=== PATIENT | female | born 2000 | race Asian ===

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

== ENCOUNTER 2020-11-01 17:05 | Inpatient (IN) | payer MEDICAID, OTHER ==
[~2020-11-01] VITALS: Ht 167.6 cm; Wt 85.0 kg
[~2020-11-01 17:05] MED LIST changes: +SERT-440 PO; -SERT100T12 PO
[2020-11-01 18:12] LABS: BASOPHILS % (AUTO) 0.5 % (0.0-2.0); EOSINOPHILS % (AUTO) 2.4 % (1.0-6.0); HEMATOCRIT 42.4 % (36-46); HEMOGLOBIN 13.6 g/dL (12.0-16.0); LYMPHOCYTES # (AUTO) 2.1 K/uL (1.0-4.8); LYMPHOCYTES % (AUTO) 25.3 % (22.0-44.0); MEAN CORPUSCULAR HEMOGLOBIN 27.5 pg (26.0-34.0); MEAN CORPUSCULAR HGB CONC 32.1 G/dL (31.0-37.0); MEAN CORPUSCULAR VOLUME 86 fL (80-100); MONOCYTES # (AUTO) 0.5 K/uL (0.1-1.0); MONOCYTES % (AUTO) 5.6 % (2.0-9.0); NEUTROPHILS # (AUTO) 5.5 K/uL (1.8-7.7); NEUTROPHILS % (AUTO) 66.2 % (40.0-70.0); PLATELET COUNT (AUTO) 244 K/uL (150-450); RED BLOOD CELL COUNT(AUTO) 4.93 MIL/uL (4.00-5.20); RED CELL DISTRIBUTION WIDTH 14.5 % (11.5-14.5)
[2020-11-01] MEDS ORDERED: BACITRACIN 0.9 GM PACKET OINTMENT TP ONE (18:15)
[2020-11-01 18:20] LABS: ANION GAP 7 mmol/L (8-16); CALCIUM, TOTAL 8.5 mg/dL (8.8-10.5); CARBON DIOXIDE 22 mmol/L (22-29); CHLORIDE 107 mmol/L (98-107); CREATININE 0.98 mg/dL (0.60-1.30); GLOMERULAR FILTR. RATE CALC > 60 mL/min (>60); GLUCOSE,RANDOM 99 mg/dL (70-110); POTASSIUM 3.6 mmol/L (3.5-5.1); SODIUM SERUM 136 mmol/L (136-145); UREA NITROGEN, BLOOD 14 mg/dL (7-18)
[2020-11-01 18:27] LABS: ALANINE AMINOTRANSFERASE 16 U/L (12-78); ALBUMIN 3.6 g/dL (3.4-5.0); ALKALINE PHOSPHATASE 79 U/L (46-116); ASPARTATE AMINOTRANSFERASE 12 U/L (15-37); BILIRUBIN,TOTAL 0.2 mg/dL (0.1-1.0); TOTAL PROTEIN, SERUM 7.5 g/dL (6.4-8.2)
[2020-11-01 18:32] LABS: COVID AG,FIA SOURCE NASOPHARYNGEAL
[2020-11-01] MEDS ORDERED: ZOLPIDEM TARTRATE 10 MG TABLET PO PRN (19:15)
[2020-11-01] MEDS ORDERED: HALOPERIDOL 5 MG TABLET PO PRN (19:15)
[2020-11-02 03:48] VITALS: BP 104/75
[2020-11-02 08:32] VITALS: BP 123/73
[2020-11-02] MEDS ORDERED: LOPERAMIDE HCL 2 MG CAPSULE PO PRN (08:45)
[2020-11-02] MEDS ORDERED: CloNIDine HCL 0.1 MG TABLET PO PRN (08:45)
[2020-11-02] MEDS ORDERED: MAGNESIUM HYDROXIDE SUSPENSION 30 ML UDCUP PO PRN (08:45)
[2020-11-02] MEDS ORDERED: MAG HYDROX/AL HYDROX/SIMETH ES 30 ML SUSPENSION UDCUP PO PRN (08:45)
[2020-11-02] MEDS ORDERED: IBUPROFEN 600 MG TABLET PO PRN (08:45)
[2020-11-02] MEDS ORDERED: ACETAMINOPHEN 325 MG TABLET PO PRN (08:45)
[2020-11-02] MEDS ORDERED: ONDANSETRON HCL 4 MG TABLET PO PRN (08:45)
[2020-11-02] MEDS ORDERED: PETROLATUM,WHITE 28 GM JELLY TP PRN (08:45)
[2020-11-02] MEDS ORDERED: BENZOCAINE/MENTHOL LOZENGE PO PRN (08:45)
[2020-11-02] MEDS ORDERED: DOCUSATE SODIUM 100 MG CAPSULE PO PRN (08:45)
[2020-11-02] MEDS ORDERED: OMEPRAZOLE 20 MG CAPSULE PO PRN (08:45)
[2020-11-02] MEDS ORDERED: BACITRACIN 28 GM OINTMENT TP PRN (08:45)
[2020-11-02] MEDS ORDERED: ALBUTEROL SULFATE HFA 90 MCG/PUFF 8 GM INHALER IH PRN (08:45)
[2020-11-02] MEDS: SERTRALINE HCL 100 MG TABLET PO SCH (10:37)
[2020-11-02] MEDS: LORazepam 2 MG TABLET PO PRN ×2 (10:37→16:28)
[2020-11-02] MEDS: TOPIRAMATE 100 MG TABLET PO SCH ×2 (10:37→16:28)
[2020-11-02] MEDS: HydrOXYzine PAMOATE 50 MG CAPSULE PO SCH (20:15)
[2020-11-02] MEDS: BENZTROPINE MESYLATE 1 MG TABLET PO SCH (20:15)
[2020-11-02] MEDS: OLANZapine 10 MG TABLET PO SCH (20:16)
[2020-11-02 20:19] VITALS: BP 125/71
[2020-11-03 05:21] VITALS: BP 121/68
[2020-11-03] MEDS: FERROUS SULFATE 325 MG EC TABLET PO SCH (06:05)
[2020-11-03 08:17] VITALS: BP 103/60
[2020-11-03 09:14] LABS: CHOL/HDL RATIO 5.9 (3.9-5.7)
[2020-11-03] MEDS: TOPIRAMATE 100 MG TABLET PO SCH ×2 (11:29→16:28)
[2020-11-03] MEDS: SERTRALINE HCL 100 MG TABLET PO SCH (11:29)
[2020-11-03 16:12] VITALS: BP 105/76
[2020-11-03] MEDS: HydrOXYzine PAMOATE 50 MG CAPSULE PO SCH (20:41)
[2020-11-03] MEDS: BENZTROPINE MESYLATE 1 MG TABLET PO SCH (20:41)
[2020-11-03] MEDS: OLANZapine 10 MG TABLET PO SCH (20:44)
[2020-11-04 05:01] VITALS: BP 112/69
[2020-11-04] MEDS: FERROUS SULFATE 325 MG EC TABLET PO SCH (06:22)
[2020-11-04] MEDS: LORazepam 2 MG TABLET PO PRN (08:05)
[2020-11-04] MEDS: SERTRALINE HCL 100 MG TABLET PO SCH (08:05)
[2020-11-04] MEDS: TOPIRAMATE 100 MG TABLET PO SCH ×2 (08:05→16:14)
[2020-11-04 09:29] VITALS: BP 120/87
[2020-11-04 14:54] LABS: GLUCOMETER DEV NAME(LOC) BV3S.; GLUCOSE,POINT OF CARE 107 MG/DL (70-110)
[2020-11-04 16:15] VITALS: BP 129/65
[2020-11-04] MEDS: BENZTROPINE MESYLATE 1 MG TABLET PO SCH (20:09)
[2020-11-04] MEDS: HydrOXYzine PAMOATE 50 MG CAPSULE PO SCH (20:09)
[2020-11-04] MEDS: OLANZapine 10 MG TABLET PO SCH (20:09)
[2020-11-05 00:11] VITALS: BP 131/80
[2020-11-05] MEDS: FERROUS SULFATE 325 MG EC TABLET PO SCH (06:28)
[2020-11-05] MEDS: TOPIRAMATE 100 MG TABLET PO SCH ×2 (08:49→16:44)
[2020-11-05] MEDS: SERTRALINE HCL 100 MG TABLET PO SCH (08:49)
[2020-11-05 11:52] VITALS: BP 122/68
[2020-11-05 16:08] VITALS: BP 134/68
[2020-11-05] MEDS: BENZTROPINE MESYLATE 1 MG TABLET PO SCH (20:16)
[2020-11-05] MEDS: HydrOXYzine PAMOATE 50 MG CAPSULE PO SCH (20:16)
[2020-11-05] MEDS: OLANZapine 10 MG TABLET PO SCH (20:16)
[2020-11-06 04:48] VITALS: BP 126/66
[2020-11-06] MEDS: FERROUS SULFATE 325 MG EC TABLET PO SCH (06:58)
[2020-11-06 08:23] VITALS: BP 119/60
[2020-11-06] MEDS: TOPIRAMATE 100 MG TABLET PO SCH ×2 (08:26→16:50)
[2020-11-06] MEDS: SERTRALINE HCL 100 MG TABLET PO SCH (08:26)
[2020-11-06] MEDS ORDERED: LORazepam 1 MG TABLET ONE ×2 (10:44)
[2020-11-06 16:11] VITALS: BP 100/70
[2020-11-06] MEDS: OLANZapine 10 MG TABLET PO SCH (20:28)
[2020-11-06] MEDS: BENZTROPINE MESYLATE 1 MG TABLET PO SCH (20:28)
[2020-11-06] MEDS: HydrOXYzine PAMOATE 50 MG CAPSULE PO SCH (20:28)
[2020-11-07 05:37] VITALS: BP 116/68
[2020-11-07] MEDS: FERROUS SULFATE 325 MG EC TABLET PO SCH (06:27)
[2020-11-07] MEDS: TOPIRAMATE 100 MG TABLET PO SCH (08:04)
[2020-11-07] MEDS: SERTRALINE HCL 100 MG TABLET PO SCH (08:06)
[2020-11-07 08:19] VITALS: BP 100/58
[2020-11-07] MEDS ORDERED: HYDR50CA9 PO (09:17)
[2020-11-07] MEDS ORDERED: TOPI100T37 PO (09:17)
[2020-11-07] MEDS ORDERED: OLAN10TA74 PO (09:18)
[2020-11-07 11:19] LABS: GLUCOMETER DEV NAME(LOC) POC.BV
== END 2020-11-07 12:30 | disposition home or self-care (01) | DRG 750 ==
LOC: EMS 17:05 → B3A 19:00
PROVIDERS: ADMIT Psychiatry & Neurology Psychiatry; ATTEND Psychiatry & Neurology Psychiatry
DX: F25.9 Schizoaffective disorder, unspecified (principal); R45.851 Suicidal ideations; F94.0 Selective mutism; Z20.822 Contact with and (suspected) exposure to COVID-19; D64.9 Anemia, unspecified; F10.11 Alcohol abuse, in remission; F32.9 Major depressive disorder, single episode, unspecified; F41.9 Anxiety disorder, unspecified; R41.83 Borderline intellectual functioning; F19.10 Other psychoactive substance abuse, uncomplicated; G47.00 Insomnia, unspecified; K59.00 Constipation, unspecified; Z79.899 Other long term (current) drug therapy; Z91.018 Allergy to other foods; Z87.891 Personal history of nicotine dependence; Z98.2 Presence of cerebrospinal fluid drainage device
CPT/HCPCS: 71045; 74018; 80053; 80061; 82962; 84702; 85025; 99285; G0480; 36415-L1; 36415-TC

== ENCOUNTER 2021-06-10 10:57 | Inpatient (IN) | payer MEDICAID, OTHER ==
[~2021-06-10] VITALS: Ht 170.2 cm; Wt 90.3 kg
[~2021-06-10 10:57] MED LIST changes: -ALBU8HFA IH; -BISA10SU11 PR; -DIPH25TA20 PO; -DOCU240C25 PO; -FLEETOIL PR; -FLUO-191 PO; +HYDR50CA7 PO; -HYDR50CA9 PO; +OLAN10TA74 PO; -OLAN5TAB30 PO; -SIME80TA12 PO; +TOPI100T37 PO
[2021-06-10 11:43] LABS: BASOPHILS % (AUTO) 0.5 % (0.0-2.0); EOSINOPHILS % (AUTO) 4.5 % (1.0-6.0); HEMATOCRIT 41.8 % (36-46); HEMOGLOBIN 14.3 g/dL (12.0-16.0); LYMPHOCYTES # (AUTO) 2.4 K/uL (1.0-4.8); MEAN CORPUSCULAR HEMOGLOBIN 30.4 pg (26.0-34.0); MEAN CORPUSCULAR HGB CONC 34.2 G/dL (31.0-37.0); MEAN CORPUSCULAR VOLUME 89 fL (80-100); MONOCYTES # (AUTO) 0.6 K/uL (0.1-1.0); MONOCYTES % (AUTO) 6.6 % (2.0-9.0); NEUTROPHILS # (AUTO) 5.5 K/uL (1.8-7.7); NEUTROPHILS % (AUTO) 61.4 % (40.0-70.0); PLATELET COUNT (AUTO) 240 K/uL (150-450); RED BLOOD CELL COUNT(AUTO) 4.71 MIL/uL (4.00-5.20); RED CELL DISTRIBUTION WIDTH 13.3 % (11.5-14.5)
[2021-06-10 11:57] LABS: ANION GAP 13 mmol/L (8-16); CALCIUM, TOTAL 8.9 mg/dL (8.8-10.5); CARBON DIOXIDE 20 mmol/L (22-29); CHLORIDE 109 mmol/L (98-107); CREATININE 1.01 mg/dL (0.60-1.30); GLOMERULAR FILTR. RATE CALC > 60 mL/min (>60); GLUCOSE,RANDOM 95 mg/dL (70-110); POTASSIUM 3.9 mmol/L (3.5-5.1); SODIUM SERUM 142 mmol/L (136-145); UREA NITROGEN, BLOOD 13 mg/dL (7-18)
[2021-06-10 12:10] LABS: ALANINE AMINOTRANSFERASE 16 U/L (12-78); ALBUMIN 3.7 g/dL (3.4-5.0); ALKALINE PHOSPHATASE 71 U/L (46-116); ASPARTATE AMINOTRANSFERASE 11 U/L (15-37); BILIRUBIN,TOTAL 0.2 mg/dL (0.1-1.0); HCG,QUANTITATIVE 1 mIU/mL (0-6); TOTAL PROTEIN, SERUM 8.5 g/dL (6.4-8.2)
[2021-06-10] MEDS ORDERED: ACETAMINOPHEN 325 MG TABLET PO PRN (15:00)
[2021-06-10] MEDS ORDERED: ONDANSETRON HCL 4 MG/2 ML VIAL IVP PRN (15:00)
[2021-06-10] MEDS ORDERED: 0.9% SODIUM CHLORIDE 10 ML SYRINGE IVP PRN (15:00)
[2021-06-10 17:03] LABS: COVID AG,FIA SOURCE NASAL SWAB
[2021-06-10] MEDS: PANTOPRAZOLE SODIUM 40 MG/VIAL IVP SCH (17:37)
[2021-06-10 18:18] LABS: INR 1.1 (0.9-1.1); PROTHROMBIN TIME 11.4 SEC (9.4-11.6)
[2021-06-10 21:00] VITALS: BP 108/75
[2021-06-10] MEDS: DOCUSATE SODIUM 100 MG CAPSULE PO SCH (21:57)
[2021-06-11] VITALS (7 sets, daily range): BP systolic 103–134; BP diastolic 53–91
[2021-06-11 07:08] LABS: BASOPHILS % (AUTO) 0.5 % (0.0-2.0); EOSINOPHILS % (AUTO) 4.7 % (1.0-6.0); HEMATOCRIT 44.7 % (36-46); HEMOGLOBIN 15.4 g/dL (12.0-16.0); LYMPHOCYTES # (AUTO) 2.6 K/uL (1.0-4.8); LYMPHOCYTES % (AUTO) 33.6 % (22.0-44.0); MEAN CORPUSCULAR HEMOGLOBIN 30.4 pg (26.0-34.0); MEAN CORPUSCULAR HGB CONC 34.4 G/dL (31.0-37.0); MEAN CORPUSCULAR VOLUME 89 fL (80-100); MONOCYTES # (AUTO) 0.5 K/uL (0.1-1.0); MONOCYTES % (AUTO) 6.4 % (2.0-9.0); NEUTROPHILS # (AUTO) 4.3 K/uL (1.8-7.7); NEUTROPHILS % (AUTO) 54.8 % (40.0-70.0); PLATELET COUNT (AUTO) 258 K/uL (150-450); RED BLOOD CELL COUNT(AUTO) 5.05 MIL/uL (4.00-5.20); RED CELL DISTRIBUTION WIDTH 13.2 % (11.5-14.5)
[2021-06-11 07:32] LABS: ALANINE AMINOTRANSFERASE 17 U/L (12-78); ALBUMIN 3.6 g/dL (3.4-5.0); ALKALINE PHOSPHATASE 73 U/L (46-116); ANION GAP 10 mmol/L (8-16); ASPARTATE AMINOTRANSFERASE 11 U/L (15-37); BILIRUBIN,TOTAL 0.5 mg/dL (0.1-1.0); CALCIUM, TOTAL 9.1 mg/dL (8.8-10.5); CARBON DIOXIDE 22 mmol/L (22-29); CHLORIDE 106 mmol/L (98-107); GLOMERULAR FILTR. RATE CALC > 60 mL/min (>60); GLUCOSE,RANDOM 84 mg/dL (70-110); POTASSIUM 3.7 mmol/L (3.5-5.1); SODIUM SERUM 138 mmol/L (136-145); TOTAL PROTEIN, SERUM 8.4 g/dL (6.4-8.2); UREA NITROGEN, BLOOD 13 mg/dL (7-18)
[2021-06-11] MEDS ORDERED: SODIUM CHLORIDE 0.9% 1,000 ML ONE (07:47)
[2021-06-11] MEDS: PANTOPRAZOLE SODIUM 40 MG/VIAL IVP SCH (08:49)
[2021-06-11] MEDS: DOCUSATE SODIUM 100 MG CAPSULE PO SCH ×2 (08:49→20:58)
[2021-06-11 16:14] LABS: AMPHET/METH SCREEN,URINE NEGATIVE (NEGATIVE); BARBITURATE SCREEN, URINE NEGATIVE (NEGATIVE); BENZODIAZEPINES SCREEN,URINE NEGATIVE (NEGATIVE); CANNABINOID SCREEN,URINE NEGATIVE (NEGATIVE); COCAINE SCREEN,URINE NEGATIVE (NEGATIVE); METHADONE SCREEN, URINE NEGATIVE (NEGATIVE); OPIATE SCREEN,URINE NEGATIVE (NEGATIVE)
[2021-06-11 16:19] LABS: PHENCYCLIDINE SCREEN,URINE NEGATIVE (NEGATIVE)
[2021-06-11] MEDS: ONDANSETRON HCL 4 MG/2 ML VIAL IVP PRN (17:19)
[2021-06-11] MEDS: ACETAMINOPHEN 325 MG TABLET PO PRN (21:00)
[2021-06-11] MEDS ORDERED: LORazepam 2 MG/ML VIAL IVP ONE (22:00)
[2021-06-12 05:40] VITALS: BP 122/61
[2021-06-12 07:35] VITALS: BP 118/63
[2021-06-12] MEDS: PANTOPRAZOLE SODIUM 40 MG/VIAL IVP SCH (09:28)
[2021-06-12] MEDS: DOCUSATE SODIUM 100 MG CAPSULE PO SCH ×2 (09:28→20:51)
[2021-06-12] MEDS: ONDANSETRON HCL 4 MG/2 ML VIAL IVP PRN (11:34)
[2021-06-12 14:28] VITALS: BP 128/68
[2021-06-12] MEDS: TOPIRAMATE 100 MG TABLET PO SCH ×2 (14:56→20:51)
[2021-06-12] MEDS: SERTRALINE HCL 100 MG TABLET PO SCH (14:56)
[2021-06-12 16:51] VITALS: BP 124/74
[2021-06-12 20:12] VITALS: BP 126/80
[2021-06-12] MEDS: HydrOXYzine PAMOATE 50 MG CAPSULE PO SCH (20:51)
[2021-06-12] MEDS: BENZTROPINE MESYLATE 1 MG TABLET PO SCH (20:51)
[2021-06-12] MEDS: OLANZapine 10 MG TABLET PO SCH (20:52)
[2021-06-13 00:32] VITALS: BP 122/72
[2021-06-13 04:50] VITALS: BP 116/71
[2021-06-13 08:11] VITALS: BP 120/70
[2021-06-13] MEDS: TOPIRAMATE 100 MG TABLET PO SCH ×2 (08:25→21:02)
[2021-06-13] MEDS: BENZTROPINE MESYLATE 1 MG TABLET PO SCH ×2 (08:26→21:02)
[2021-06-13] MEDS: SERTRALINE HCL 100 MG TABLET PO SCH (08:26)
[2021-06-13] MEDS: DOCUSATE SODIUM 100 MG CAPSULE PO SCH ×2 (08:26→21:02)
[2021-06-13] MEDS: PANTOPRAZOLE SODIUM 40 MG/VIAL IVP SCH (08:29)
[2021-06-13 16:08] VITALS: BP 127/98
[2021-06-13] MEDS: OLANZapine 10 MG TABLET PO SCH (21:02)
[2021-06-13] MEDS: HydrOXYzine PAMOATE 50 MG CAPSULE PO SCH (21:02)
[2021-06-13] MEDS: ACETAMINOPHEN 325 MG TABLET PO PRN (21:02)
[2021-06-13 21:12] VITALS: BP 117/71
[2021-06-14 01:22] VITALS: BP 116/72
[2021-06-14 05:20] VITALS: BP 108/64
[2021-06-14] MEDS: PANTOPRAZOLE SODIUM 40 MG/VIAL IVP SCH (07:51)
[2021-06-14] MEDS: SERTRALINE HCL 100 MG TABLET PO SCH (08:08)
[2021-06-14] MEDS: TOPIRAMATE 100 MG TABLET PO SCH ×2 (08:09→20:10)
[2021-06-14] MEDS: DOCUSATE SODIUM 100 MG CAPSULE PO SCH ×2 (08:09→20:10)
[2021-06-14] MEDS: BENZTROPINE MESYLATE 1 MG TABLET PO SCH ×2 (08:10→20:10)
[2021-06-14 08:14] VITALS: BP 140/80
[2021-06-14 19:53] VITALS: BP 127/73
[2021-06-14] MEDS: HydrOXYzine PAMOATE 50 MG CAPSULE PO SCH (20:10)
[2021-06-14] MEDS: OLANZapine 10 MG TABLET PO SCH (20:10)
[2021-06-15] MEDS: ACETAMINOPHEN 325 MG TABLET PO PRN (00:43)
[2021-06-15 04:56] VITALS: BP 107/63
[2021-06-15 08:17] VITALS: BP 142/74
[2021-06-15] MEDS: PANTOPRAZOLE SODIUM 40 MG/VIAL IVP SCH (09:00)
[2021-06-15] MEDS: BENZTROPINE MESYLATE 1 MG TABLET PO SCH (09:38)
[2021-06-15] MEDS: DOCUSATE SODIUM 100 MG CAPSULE PO SCH (09:38)
[2021-06-15] MEDS: TOPIRAMATE 100 MG TABLET PO SCH (09:39)
[2021-06-15] MEDS: SERTRALINE HCL 100 MG TABLET PO SCH (09:40)
[2021-06-15] MEDS ORDERED: DOCU-270 PO (11:42)
[2021-06-15] MEDS ORDERED: SERT-162 PO (11:43)
[2021-06-15] MEDS ORDERED: ACET650S24 PR (11:44)
[2021-06-15 16:23] VITALS: BP 118/54
== END 2021-06-15 19:35 | DRG 254 ==
LOC: EMS 11:03 → 6N 17:23
PROVIDERS: ADMIT Internal Medicine; ATTEND Internal Medicine
DX: T18.8XXA Foreign body in other parts of alimentary tract, initial encounter (principal); R45.851 Suicidal ideations; F32.9 Major depressive disorder, single episode, unspecified; X58.XXXA Exposure to other specified factors, initial encounter; Y93.89 Activity, other specified; Z98.2 Presence of cerebrospinal fluid drainage device; Z91.018 Allergy to other foods; Y92.89 Other specified places as the place of occurrence of the external cause; Y99.8 Other external cause status
CPT/HCPCS: 71045; 74018; 74019; 74176; 80053; 84702; 85025; 85610; 87081; 99285; C9113; G0480; J2060; J2405; J7030; 36415-L1; 36415-TC

== ENCOUNTER 2021-08-21 16:00 | Emergency (ER) | payer OTHER ==
[~2021-08-21] VITALS: Ht 167.6 cm; Wt 91.8 kg
[~2021-08-21 16:00] MED LIST changes: +ACET650S24 PR; -BENZ1TAB10 PO; +BENZ1TAB96 PO; +DOCU-385 PO; -FERR-89 PO; +SERT-162 PO; -SERT-440 PO
[2021-08-21] MEDS: PHENYLEPHRINE HCL 0.5% 15 ML NASAL SPRAY NASAL ONE (18:23)
[2021-08-21 19:15] VITALS: BP 114/90
== END 2021-08-21 21:34 | disposition home or self-care (01) ==
LOC: EMS 16:06
DX: R04.0 Epistaxis (principal); F32.A Depression, unspecified; F78.A9 Other genetic related intellectual disability; Z98.890 Other specified postprocedural states; Z91.018 Allergy to other foods; Z88.8 Allergy status to other drugs, medicaments and biological substances; Z86.2 Personal history of diseases of the blood and blood-forming organs and certain disorders involving the immune mechanism
CPT/HCPCS: 30901; 99284; Z7502; Z7610

== ENCOUNTER 2021-12-18 19:35 | Emergency (ER) | payer OTHER ==
[~2021-12-18] VITALS: Ht 175.3 cm; Wt 100.0 kg
[2021-12-18 20:21] VITALS: BP 141/77
[2021-12-18 20:36] LABS: BASOPHILS % (AUTO) 0.5 % (0.0-2.0); EOSINOPHILS % (AUTO) 2.6 % (1.0-6.0); HEMOGLOBIN 12.7 g/dL (12.0-16.0); LYMPHOCYTES # (AUTO) 2.9 K/uL (1.0-4.8); LYMPHOCYTES % (AUTO) 30.2 % (22.0-44.0); MEAN CORPUSCULAR HEMOGLOBIN 29.2 pg (26.0-34.0); MEAN CORPUSCULAR HGB CONC 32.5 G/dL (31.0-37.0); MEAN CORPUSCULAR VOLUME 90 fL (80-100); MONOCYTES # (AUTO) 0.6 K/uL (0.1-1.0); MONOCYTES % (AUTO) 6.1 % (2.0-9.0); NEUTROPHILS # (AUTO) 5.8 K/uL (1.8-7.7); NEUTROPHILS % (AUTO) 60.6 % (40.0-70.0); PLATELET COUNT (AUTO) 276 K/uL (150-450); RED BLOOD CELL COUNT(AUTO) 4.34 MIL/uL (4.00-5.20); RED CELL DISTRIBUTION WIDTH 14.6 % (11.5-14.5)
[2021-12-18 20:43] LABS: ANION GAP 16 mmol/L (8-16); CALCIUM, TOTAL 8.3 mg/dL (8.8-10.5); CARBON DIOXIDE 19 mmol/L (22-29); CHLORIDE 105 mmol/L (98-107); CREATININE 1.13 mg/dL (0.60-1.30); GLOMERULAR FILTR. RATE CALC > 60 mL/min (>60); GLUCOSE,RANDOM 89 mg/dL (70-110); POTASSIUM 3.3 mmol/L (3.5-5.1); SODIUM SERUM 140 mmol/L (136-145); UREA NITROGEN, BLOOD 12 mg/dL (7-18)
[2021-12-18 20:49] LABS: ALANINE AMINOTRANSFERASE 18 U/L (12-78); ALBUMIN 3.8 g/dL (3.4-5.0); ALKALINE PHOSPHATASE 72 U/L (46-116); ASPARTATE AMINOTRANSFERASE 14 U/L (15-37); BILIRUBIN,TOTAL 0.3 mg/dL (0.1-1.0); TOTAL PROTEIN, SERUM 7.9 g/dL (6.4-8.2)
[2021-12-18 21:07] LABS: HCG,QUANTITATIVE 1 mIU/mL (0-6)
[2021-12-18 21:30] LABS: AMPHET/METH SCREEN,URINE NEGATIVE (NEGATIVE); BARBITURATE SCREEN, URINE NEGATIVE (NEGATIVE); BENZODIAZEPINES SCREEN,URINE NEGATIVE (NEGATIVE); CANNABINOID SCREEN,URINE NEGATIVE (NEGATIVE); COCAINE SCREEN,URINE NEGATIVE (NEGATIVE); METHADONE SCREEN, URINE NEGATIVE (NEGATIVE); OPIATE SCREEN,URINE NEGATIVE (NEGATIVE)
[2021-12-18 21:31] LABS: PHENCYCLIDINE SCREEN,URINE NEGATIVE (NEGATIVE)
== END 2021-12-18 23:09 | disposition home or self-care (01) ==
LOC: EMS 19:36
DX: T18.2XXA Foreign body in stomach, initial encounter (principal); T65.892A Toxic effect of other specified substances, intentional self-harm, initial encounter; F32.9 Major depressive disorder, single episode, unspecified; Y92.89 Other specified places as the place of occurrence of the external cause; Y93.89 Activity, other specified; Y99.8 Other external cause status
CPT/HCPCS: 99284; 80053; 84702; 85025; 36415; 74022; 80307; G0480; 99283

== ENCOUNTER 2023-06-05 16:44 | Emergency (ER) | payer OTHER ==
[~2023-06-05] VITALS: Ht 170.2 cm; Wt 95.5 kg
[~2023-06-05 16:44] MED LIST changes: +BENZ1TAB84 PO; -BENZ1TAB96 PO
[2023-06-05] MEDS ORDERED: PROP10TA73 PO (17:34)
[2023-06-05] MEDS ORDERED: CHLO50TA61 PO (17:34)
[2023-06-05] MEDS ORDERED: HYDR50CA7 PO (17:34)
[2023-06-05] MEDS ORDERED: METF-1211 PO (17:34)
[2023-06-05] MEDS ORDERED: MEDR150V13 IM (17:34)
[2023-06-05 17:44] VITALS: TEMP 98.7
[2023-06-06] VITALS: BP 128/70; PULSE 70; RESP 17
[2023-06-06] MEDS: ACETAMINOPHEN 325 MG TABLET PO ONE (03:32)
== END 2023-06-06 03:34 | disposition home or self-care (01) ==
LOC: EMS 16:45
DX: R51.9 Headache, unspecified (principal); F32.A Depression, unspecified; Z98.890 Other specified postprocedural states; Z91.018 Allergy to other foods; Z91.040 Latex allergy status; Z98.2 Presence of cerebrospinal fluid drainage device
CPT/HCPCS: 70450; 72125; 99284